=== PATIENT | female | born 1945 | race African-American/Black ===

== ENCOUNTER 2021-07-17 16:45 | Inpatient (IN) ==
[2021-07-18] MEDS ORDERED: Diphenoxylate/Atropine 1 TAB TABLET PO PRN (17:42)
[2021-07-18] MEDS: allopurinoL 100 MG TABLET PO SCH (20:15)
[2021-07-18] MEDS: Famotidine 20 MG TABLET PO SCH (20:15)
[2021-07-18] MEDS: Vancomycin Oral Soln 125 MG/2.5 ML UDC PO SCH (20:51)
[2021-07-19] MEDS ORDERED: amLODIPine 5 MG TABLET PO ONE (02:21)
[2021-07-19 04:43] LABS: Basophils % 0.3 %; Hematocrit 22.5 % (35.3-44.9); Hemoglobin 7.4 g/dL (11.5-15.4); Immature Granulocytes % 2.7 % (0-4); Lymphocytes # 2.9 K/mcL (0.6-4.6); Lymphocytes % 20.2 %; Mean Corpuscular HGB Conc 32.9 g/dL (31.6-35.5); Mean Corpuscular Hemoglobin 26.8 pg (28.0-33.3); Mean Corpuscular Volume 81.5 fL (83.0-100.0); Mean Platelet Volume 10.6 fL (9.4-12.4); Monocytes # 1.3 K/mcL (0.0-1.3); Monocytes % 8.8 %; Neutrophils # 9.8 K/mcL (1.6-8.9); Nucleated Red Blood Cells 0.1 /100 WBC (0); Platelet Count 298 K/mcL (140-400); Red Blood Count 2.76 M/mcL (3.82-4.97); Red Cell Distribution Width 15.6 % (11.5-14.5); White Blood Count 14.4 K/mcL (4.3-11.1)
[2021-07-19 04:58] LABS: BUN/Creatinine Ratio 8 (6-26); Blood Urea Nitrogen 8 mg/dL (8-23); Calcium 8.8 mg/dL (8.6-10.3); Carbon Dioxide 31 mEq/L (23-29); Chloride 101 mEq/L (98-107); Glucose 289 mg/dL (70-105); Osmolality,Calculated 295 (280-300); Potassium 3.4 mEq/L (3.5-5.1); Sodium 138 mEq/L (136-145); eGFR For African Americans > 60 (> 60); eGFR For Non-African Americans 53 (> 60)
[2021-07-19] MEDS: *HR* Enoxaparin 40 MG/0.4 ML SYRINGE SQ SCH (06:03)
[2021-07-19] MEDS: Magnesium Oxide 400 MG TABLET PO SCH (09:35)
[2021-07-19] MEDS: allopurinoL 100 MG TABLET PO SCH ×2 (09:36→21:09)
[2021-07-19] MEDS: *HR* Glimepiride 2 MG TABLET PO SCH (09:36)
[2021-07-19] MEDS: levoFLOXacin 500 MG TABLET PO SCH (09:36)
[2021-07-19] MEDS: Famotidine 20 MG TABLET PO SCH ×2 (09:37→21:09)
[2021-07-19] MEDS: Loratadine 10 MG TABLET PO SCH (09:38)
[2021-07-19] MEDS: Lactobacillus 1 EACH CAP.SPRINK PO SCH (09:38)
[2021-07-19] MEDS: carvediloL 6.25 MG TABLET PO SCH ×2 (09:38→18:20)
[2021-07-19] MEDS: Vancomycin Oral Soln 125 MG/2.5 ML UDC PO SCH ×4 (09:42→21:09)
[2021-07-19] MEDS: Cyanocobalamin (B-12) 1,000 MCG TABLET PO SCH (09:49)
[2021-07-19] MEDS: Cholecalciferol (D-3) 1,000 UNIT (25MCG) TABLET PO SCH (09:49)
[2021-07-19] MEDS ORDERED: *HR* Dextrose 50 % in Water (Syg) 50 ML SYRINGE IVP PRN (12:38)
[2021-07-19] MEDS ORDERED: D5% in Water 1,000 ML IVC PRN (12:38)
[2021-07-19] MEDS ORDERED: Dextrose Gel 15 GM/37.5 ML TUBE PO PRN ×2 (12:38)
[2021-07-19] MEDS: Insulin LISPRO 300 UNITS/3 ML VIAL SUBQ SCH (18:20)
[2021-07-19] MEDS: Insulin DETEMIR 100 UNIT/ML X5UNITS SUBQ SCH (21:09)
[2021-07-20] MEDS: *HR* Enoxaparin 40 MG/0.4 ML SYRINGE SQ SCH (04:22)
[2021-07-20] MEDS: Loratadine 10 MG TABLET PO SCH (08:44)
[2021-07-20] MEDS: allopurinoL 100 MG TABLET PO SCH ×2 (08:44→22:24)
[2021-07-20] MEDS: Lactobacillus 1 EACH CAP.SPRINK PO SCH (08:44)
[2021-07-20] MEDS: *HR* Glimepiride 2 MG TABLET PO SCH (08:45)
[2021-07-20] MEDS: levoFLOXacin 500 MG TABLET PO SCH (08:46)
[2021-07-20] MEDS: carvediloL 6.25 MG TABLET PO SCH ×2 (08:46→16:30)
[2021-07-20] MEDS: Magnesium Oxide 400 MG TABLET PO SCH (08:46)
[2021-07-20] MEDS: Famotidine 20 MG TABLET PO SCH ×2 (08:46→22:24)
[2021-07-20] MEDS: Insulin LISPRO 300 UNITS/3 ML VIAL SUBQ SCH ×3 (08:47→17:12)
[2021-07-20] MEDS: Vancomycin Oral Soln 125 MG/2.5 ML UDC PO SCH ×4 (08:47→22:24)
[2021-07-20] MEDS: Insulin DETEMIR 100 UNIT/ML X5UNITS SUBQ SCH ×2 (08:59→22:25)
[2021-07-21 06:45] LABS: Alanine Aminotransferase 8 Units/L (7-52); Albumin 2.6 g/dL (3.5-5.7); Alkaline Phosphatase 59 Units/L (34-104); Aspartate Amino Transferase 10 Units/L (13-39); BUN/Creatinine Ratio 7 (6-26); Bilirubin,Total 0.7 mg/dL (0.3-1.0); Blood Urea Nitrogen 7 mg/dL (8-23); Calcium 8.6 mg/dL (8.6-10.3); Carbon Dioxide 33 mEq/L (23-29); Chloride 101 mEq/L (98-107); Globulin 2.7 g/dL (2.4-3.5); Glucose 117 mg/dL (70-105); Magnesium 1.4 mg/dL (1.6-2.6); Osmolality,Calculated 287 (280-300); Potassium 3.2 mEq/L (3.5-5.1); Sodium 139 mEq/L (136-145); Total Protein 5.3 g/dL (6.4-8.9); eGFR For African Americans > 60 (> 60); eGFR For Non-African Americans 58 (> 60)
[2021-07-21 06:46] LABS: Hematocrit 21.2 % (35.3-44.9); Mean Corpuscular Hemoglobin 26.8 pg (28.0-33.3); Mean Corpuscular Volume 81.2 fL (83.0-100.0); Mean Platelet Volume 10.8 fL (9.4-12.4); Platelet Count 316 K/mcL (140-400); Red Blood Count 2.61 M/mcL (3.82-4.97); Red Cell Distribution Width 15.8 % (11.5-14.5); White Blood Count 11.4 K/mcL (4.3-11.1)
[2021-07-21] MEDS: *HR* Enoxaparin 40 MG/0.4 ML SYRINGE SQ SCH (07:00)
[2021-07-21] MEDS: Insulin LISPRO 300 UNITS/3 ML VIAL SUBQ SCH ×3 (07:39→16:48)
[2021-07-21] MEDS: Vancomycin Oral Soln 125 MG/2.5 ML UDC PO SCH ×4 (08:21→21:04)
[2021-07-21] MEDS: Lactobacillus 1 EACH CAP.SPRINK PO SCH (08:22)
[2021-07-21] MEDS: Magnesium Oxide 400 MG TABLET PO SCH ×2 (08:22→21:05)
[2021-07-21] MEDS: Loratadine 10 MG TABLET PO SCH (08:22)
[2021-07-21] MEDS: Famotidine 20 MG TABLET PO SCH ×2 (08:22→21:05)
[2021-07-21] MEDS: levoFLOXacin 500 MG TABLET PO SCH (08:22)
[2021-07-21] MEDS: *HR* Glimepiride 2 MG TABLET PO SCH (08:22)
[2021-07-21] MEDS: carvediloL 6.25 MG TABLET PO SCH ×2 (08:22→16:46)
[2021-07-21] MEDS: allopurinoL 100 MG TABLET PO SCH ×2 (08:23→21:05)
[2021-07-21] MEDS: Cholecalciferol (D-3) 1,000 UNIT (25MCG) TABLET PO SCH (08:33)
[2021-07-21] MEDS: Insulin DETEMIR 100 UNIT/ML X5UNITS SUBQ SCH ×2 (08:33→21:06)
[2021-07-21] MEDS: Cyanocobalamin (B-12) 1,000 MCG TABLET PO SCH (08:33)
[2021-07-21] MEDS: Potassium Chloride Elixir 20 MEQ/15 ML UDC PO SCH (13:53)
[2021-07-21] MEDS ORDERED: Acetaminophen 325 MG TABLET PO PRN (16:04)
[2021-07-21] MEDS ORDERED: 0.9 % Sodium Chloride 250 ML ONE (20:53)
[2021-07-21] MEDS: Melatonin 3 MG TABLET PO SCH (21:05)
[2021-07-22 06:02] LABS: Basophils % 0.4 %; Eosinophils % 0.2 %; Hematocrit 25.6 % (35.3-44.9); Hemoglobin 8.5 g/dL (11.5-15.4); Immature Granulocytes % 0.9 % (0-4); Lymphocytes # 2.6 K/mcL (0.6-4.6); Lymphocytes % 28.3 %; Mean Corpuscular HGB Conc 33.2 g/dL (31.6-35.5); Mean Corpuscular Volume 81.3 fL (83.0-100.0); Mean Platelet Volume 10.5 fL (9.4-12.4); Monocytes % 11.1 %; Neutrophils # 5.5 K/mcL (1.6-8.9); Platelet Count 326 K/mcL (140-400); Red Blood Count 3.15 M/mcL (3.82-4.97); Red Cell Distribution Width 15.3 % (11.5-14.5); Segmented Neutrophils % 59.1 %; White Blood Count 9.3 K/mcL (4.3-11.1)
[2021-07-22 06:18] LABS: Alanine Aminotransferase 8 Units/L (7-52); Albumin 2.7 g/dL (3.5-5.7); Alkaline Phosphatase 65 Units/L (34-104); Aspartate Amino Transferase 12 Units/L (13-39); BUN/Creatinine Ratio 9 (6-26); Blood Urea Nitrogen 8 mg/dL (8-23); Calcium 8.6 mg/dL (8.6-10.3); Carbon Dioxide 31 mEq/L (23-29); Chloride 100 mEq/L (98-107); Globulin 2.8 g/dL (2.4-3.5); Glucose 144 mg/dL (70-105); Osmolality,Calculated 283 (280-300); Potassium 3.3 mEq/L (3.5-5.1); Sodium 136 mEq/L (136-145); Total Protein 5.5 g/dL (6.4-8.9); eGFR For African Americans > 60 (> 60); eGFR For Non-African Americans > 60 (> 60)
[2021-07-22] MEDS: *HR* Enoxaparin 40 MG/0.4 ML SYRINGE SQ SCH (06:28)
[2021-07-22] MEDS: Insulin LISPRO 300 UNITS/3 ML VIAL SUBQ SCH ×3 (07:58→16:48)
[2021-07-22] MEDS: Insulin DETEMIR 100 UNIT/ML X5UNITS SUBQ SCH ×2 (08:47→20:26)
[2021-07-22] MEDS: Potassium Chloride Elixir 20 MEQ/15 ML UDC PO SCH ×2 (08:47→20:26)
[2021-07-22] MEDS: Lactobacillus 1 EACH CAP.SPRINK PO SCH (08:48)
[2021-07-22] MEDS: allopurinoL 100 MG TABLET PO SCH ×2 (08:48→20:26)
[2021-07-22] MEDS: *HR* Glimepiride 2 MG TABLET PO SCH (08:48)
[2021-07-22] MEDS: levoFLOXacin 500 MG TABLET PO SCH (08:48)
[2021-07-22] MEDS: Loratadine 10 MG TABLET PO SCH (08:48)
[2021-07-22] MEDS: Vancomycin Oral Soln 125 MG/2.5 ML UDC PO SCH ×4 (08:48→20:26)
[2021-07-22] MEDS: Magnesium Oxide 400 MG TABLET PO SCH ×2 (08:49→20:25)
[2021-07-22] MEDS: Famotidine 20 MG TABLET PO SCH ×2 (08:49→20:26)
[2021-07-22] MEDS: carvediloL 6.25 MG TABLET PO SCH ×2 (08:49→16:48)
[2021-07-22] MEDS: EXENATIDE MICROSPHERES SQ SCH ×2 (08:49→10:19)
[2021-07-22 13:22] LABS: Iron 68 mcg/dL (50-170)
[2021-07-22 15:59] LABS: Ferritin > 1500 ng/mL (10-120)
[2021-07-22] MEDS: Melatonin 3 MG TABLET PO SCH (20:25)
[2021-07-23] MEDS: *HR* Enoxaparin 40 MG/0.4 ML SYRINGE SQ SCH (05:44)
[2021-07-23 06:21] LABS: Basophils % 0.4 %; Eosinophils # 0.1 K/mcL (0.0-0.6); Eosinophils % 0.5 %; Hematocrit 26.2 % (35.3-44.9); Hemoglobin 8.8 g/dL (11.5-15.4); Immature Granulocytes % 0.6 % (0-4); Lymphocytes # 2.5 K/mcL (0.6-4.6); Lymphocytes % 24.2 %; Mean Corpuscular HGB Conc 33.6 g/dL (31.6-35.5); Mean Corpuscular Hemoglobin 27.4 pg (28.0-33.3); Mean Corpuscular Volume 81.6 fL (83.0-100.0); Mean Platelet Volume 10.5 fL (9.4-12.4); Monocytes % 9.7 %; Neutrophils # 6.7 K/mcL (1.6-8.9); Platelet Count 341 K/mcL (140-400); Red Blood Count 3.21 M/mcL (3.82-4.97); Red Cell Distribution Width 15.7 % (11.5-14.5); Segmented Neutrophils % 64.6 %; White Blood Count 10.4 K/mcL (4.3-11.1)
[2021-07-23 06:51] LABS: BUN/Creatinine Ratio 8 (6-26); Blood Urea Nitrogen 7 mg/dL (8-23); Calcium 8.5 mg/dL (8.6-10.3); Carbon Dioxide 32 mEq/L (23-29); Chloride 100 mEq/L (98-107); Potassium 3.4 mEq/L (3.5-5.1); Sodium 140 mEq/L (136-145); eGFR For African Americans > 60 (> 60); eGFR For Non-African Americans 60 (> 60)
[2021-07-23 07:00] LABS: Glucose 121 mg/dL (70-105); Osmolality,Calculated 289 (280-300)
[2021-07-23] MEDS: Insulin LISPRO 300 UNITS/3 ML VIAL SUBQ SCH ×3 (07:44→15:56)
[2021-07-23] MEDS: Famotidine 20 MG TABLET PO SCH ×2 (08:58→22:02)
[2021-07-23] MEDS: carvediloL 6.25 MG TABLET PO SCH ×2 (08:58→16:39)
[2021-07-23] MEDS: Vancomycin Oral Soln 125 MG/2.5 ML UDC PO SCH ×4 (08:58→22:02)
[2021-07-23] MEDS: Potassium Chloride Elixir 20 MEQ/15 ML UDC PO SCH ×2 (08:58→22:01)
[2021-07-23] MEDS: Loratadine 10 MG TABLET PO SCH (08:58)
[2021-07-23] MEDS: Lactobacillus 1 EACH CAP.SPRINK PO SCH (08:58)
[2021-07-23] MEDS: allopurinoL 100 MG TABLET PO SCH ×2 (08:58→22:02)
[2021-07-23] MEDS: Insulin DETEMIR 100 UNIT/ML X5UNITS SUBQ SCH ×2 (08:59→22:02)
[2021-07-23] MEDS: *HR* Glimepiride 2 MG TABLET PO SCH (08:59)
[2021-07-23] MEDS: Magnesium Oxide 400 MG TABLET PO SCH ×2 (08:59→22:02)
[2021-07-23] MEDS: Cyanocobalamin (B-12) 1,000 MCG TABLET PO SCH (09:09)
[2021-07-23] MEDS: Melatonin 3 MG TABLET PO SCH (22:02)
[2021-07-23] MEDS ORDERED: Oxymetazoline Nasal SPRAY BOTTLE 15ML NS ONE (23:59)
[2021-07-24] MEDS ORDERED: Silver Nitrate Applicator 1 STICK..EA. TP ONE ×2 (00:03→00:11)
[2021-07-24 02:05] LABS: Basophils # 0.1 K/mcL (0.0-0.2); Basophils % 0.5 %; Eosinophils # 0.1 K/mcL (0.0-0.6); Eosinophils % 0.5 %; Hematocrit 25.4 % (35.3-44.9); Hemoglobin 8.3 g/dL (11.5-15.4); Immature Granulocytes % 0.6 % (0-4); Lymphocytes # 2.8 K/mcL (0.6-4.6); Lymphocytes % 25.9 %; Mean Corpuscular HGB Conc 32.7 g/dL (31.6-35.5); Mean Corpuscular Hemoglobin 26.9 pg (28.0-33.3); Mean Corpuscular Volume 82.2 fL (83.0-100.0); Monocytes # 1.2 K/mcL (0.0-1.3); Monocytes % 11.1 %; Neutrophils # 6.6 K/mcL (1.6-8.9); Platelet Count 310 K/mcL (140-400); Red Blood Count 3.09 M/mcL (3.82-4.97); Red Cell Distribution Width 15.9 % (11.5-14.5); Segmented Neutrophils % 61.4 %; White Blood Count 10.8 K/mcL (4.3-11.1)
[2021-07-24] MEDS: Pantoprazole 40 MG VIAL IVP SCH ×2 (05:11→19:16)
[2021-07-24 08:16] LABS: Basophils # 0.1 K/mcL (0.0-0.2); Basophils % 0.5 %; Eosinophils # 0.1 K/mcL (0.0-0.6); Eosinophils % 0.6 %; Hematocrit 26.9 % (35.3-44.9); Immature Granulocytes % 0.5 % (0-4); Lymphocytes % 29.9 %; Mean Corpuscular HGB Conc 33.5 g/dL (31.6-35.5); Mean Corpuscular Hemoglobin 27.1 pg (28.0-33.3); Mean Platelet Volume 10.5 fL (9.4-12.4); Monocytes # 1.1 K/mcL (0.0-1.3); Neutrophils # 5.9 K/mcL (1.6-8.9); Platelet Count 365 K/mcL (140-400); Red Blood Count 3.32 M/mcL (3.82-4.97); Red Cell Distribution Width 15.7 % (11.5-14.5); Segmented Neutrophils % 57.5 %; White Blood Count 10.2 K/mcL (4.3-11.1)
[2021-07-24 08:29] LABS: BUN/Creatinine Ratio 8 (6-26); Blood Urea Nitrogen 8 mg/dL (8-23); Calcium 8.9 mg/dL (8.6-10.3); Carbon Dioxide 31 mEq/L (23-29); Chloride 99 mEq/L (98-107); Glucose 164 mg/dL (70-105); Osmolality,Calculated 288 (280-300); Potassium 4.1 mEq/L (3.5-5.1); Sodium 138 mEq/L (136-145); eGFR For African Americans > 60 (> 60); eGFR For Non-African Americans 55 (> 60)
[2021-07-24] MEDS: carvediloL 6.25 MG TABLET PO SCH ×2 (08:55→18:36)
[2021-07-24] MEDS: Loratadine 10 MG TABLET PO SCH (09:11)
[2021-07-24] MEDS: Magnesium Oxide 400 MG TABLET PO SCH ×2 (09:11→21:49)
[2021-07-24] MEDS: Lactobacillus 1 EACH CAP.SPRINK PO SCH (09:11)
[2021-07-24] MEDS: allopurinoL 100 MG TABLET PO SCH ×2 (09:11→21:49)
[2021-07-24] MEDS: Potassium Chloride Elixir 20 MEQ/15 ML UDC PO SCH (09:12)
[2021-07-24] MEDS: Insulin LISPRO 300 UNITS/3 ML VIAL SUBQ SCH ×3 (09:12→18:37)
[2021-07-24] MEDS: Cholecalciferol (D-3) 1,000 UNIT (25MCG) TABLET PO SCH (09:31)
[2021-07-24] MEDS: Cyanocobalamin (B-12) 1,000 MCG TABLET PO SCH (09:32)
[2021-07-24] MEDS: *HR* Glimepiride 2 MG TABLET PO SCH (09:32)
[2021-07-24] MEDS: Insulin DETEMIR 100 UNIT/ML X5UNITS SUBQ SCH ×2 (10:01→21:49)
[2021-07-24] MEDS: Melatonin 3 MG TABLET PO SCH (21:49)
[2021-07-25] MEDS: Pantoprazole 40 MG VIAL IVP SCH (06:03)
[2021-07-25 07:28] VITALS: BP 167/92; PULSE 93; RESP 17; TEMP 97.5; O2SAT 95
[2021-07-25] MEDS: *HR* Glimepiride 2 MG TABLET PO SCH (09:44)
[2021-07-25] MEDS: carvediloL 6.25 MG TABLET PO SCH (09:44)
[2021-07-25] MEDS: Lactobacillus 1 EACH CAP.SPRINK PO SCH (09:44)
[2021-07-25] MEDS: Magnesium Oxide 400 MG TABLET PO SCH (09:45)
[2021-07-25] MEDS: allopurinoL 100 MG TABLET PO SCH (09:45)
[2021-07-25] MEDS: Loratadine 10 MG TABLET PO SCH (09:45)
[2021-07-25] MEDS: Insulin LISPRO 300 UNITS/3 ML VIAL SUBQ SCH ×2 (09:46→12:29)
[2021-07-25] MEDS: Insulin DETEMIR 100 UNIT/ML X5UNITS SUBQ SCH (09:46)
[2021-07-26 17:39] LABS: % Iron Saturation 38 % (15-50); Transferrin 129 mg/dL (200-400)
== END 2021-07-25 12:35 | disposition home health service (06) | DRG 194 ==
LOC: INPGRE 07-18 17:07
PROVIDERS: ADMIT Family Medicine; ATTEND Family Medicine

== ENCOUNTER 2021-10-03 16:42 | Inpatient (IN) ==
[2021-10-06] MEDS ORDERED: polyethylene glycoL 3350 17 GM POWD.PACK PO PRN (23:25)
[2021-10-06] MEDS ORDERED: D5% in Water 1,000 ML IVC PRN (23:29)
[2021-10-06] MEDS ORDERED: *HR* Dextrose 50 % in Water (Syg) 50 ML SYRINGE IVP PRN (23:29)
[2021-10-06] MEDS ORDERED: Dextrose Gel 15 GM/37.5 ML TUBE PO PRN ×2 (23:29)
[2021-10-06] MEDS ORDERED: Insulin DETEMIR 100 UNIT/ML per UNIT SUBQ ONE (23:45)
[2021-10-07 06:04] LABS: Basophils % 0.1 %; Eosinophils % 0.1 %; Hematocrit 25.4 % (35.3-44.9); Hemoglobin 8.9 g/dL (11.5-15.4); Immature Granulocytes % 2.3 % (0-4); Lymphocytes # 0.9 K/mcL (0.6-4.6); Lymphocytes % 6.2 %; Mean Corpuscular Hemoglobin 27.6 pg (28.0-33.3); Mean Corpuscular Volume 78.9 fL (83.0-100.0); Mean Platelet Volume 10.5 fL (9.4-12.4); Monocytes # 0.7 K/mcL (0.0-1.3); Monocytes % 4.8 %; Neutrophils # 12.2 K/mcL (1.6-8.9); Nucleated Red Blood Cells 0.4 /100 WBC (0); Platelet Count 217 K/mcL (140-400); Red Blood Count 3.22 M/mcL (3.82-4.97); Red Cell Distribution Width 16.6 % (11.5-14.5); Segmented Neutrophils % 86.5 %; White Blood Count 14.1 K/mcL (4.3-11.1)
[2021-10-07 06:20] LABS: BUN/Creatinine Ratio 22 (6-26); Blood Urea Nitrogen 19 mg/dL (8-23); Calcium 8.4 mg/dL (8.6-10.3); Carbon Dioxide 30 mEq/L (23-29); Chloride 99 mEq/L (98-107); Glucose 108 mg/dL (70-105); Osmolality,Calculated 283 (280-300); Potassium 3.5 mEq/L (3.5-5.1); Sodium 135 mEq/L (136-145); eGFR For African Americans > 60 (> 60); eGFR For Non-African Americans > 60 (> 60)
[2021-10-07] MEDS: allopurinoL 100 MG TABLET PO SCH ×2 (10:33→21:02)
[2021-10-07] MEDS: Cholecalciferol (D-3) 1,000 UNIT (25MCG) TABLET PO SCH (10:33)
[2021-10-07] MEDS: Loratadine 10 MG TABLET PO SCH (10:33)
[2021-10-07] MEDS: amLODIPine 5 MG TABLET PO SCH (10:33)
[2021-10-07] MEDS: lisinopriL 10 MG TABLET PO SCH (10:33)
[2021-10-07] MEDS: dexAMETHasone 4 MG TABLET PO SCH ×2 (10:34→21:02)
[2021-10-07] MEDS: Insulin DETEMIR 100 UNIT/ML X5UNITS SUBQ SCH ×2 (10:34→21:02)
[2021-10-07] MEDS: carvediloL 6.25 MG TABLET PO SCH ×2 (10:34→18:04)
[2021-10-07] MEDS: DICLOFENAC SODIUM 2 GM TP SCH ×4 (10:35→21:06)
[2021-10-07] MEDS: Vancomycin Oral Soln 125 MG/2.5 ML UDC PO SCH (10:50)
[2021-10-07] MEDS: Insulin LISPRO 300 UNITS/3 ML VIAL SUBQ SCH ×5 (11:43→21:03)
[2021-10-07 13:47] LABS: Estimated Average Glucose 163 mg/dl; Hemoglobin A1C 7.3 %
[2021-10-07] MEDS ORDERED: Dextrose Gel 15 GM/37.5 ML TUBE PO PRN ×2 (17:01)
[2021-10-07] MEDS ORDERED: *HR* Dextrose 50 % in Water (Syg) 50 ML SYRINGE IVP PRN (17:01)
[2021-10-07] MEDS ORDERED: D5% in Water 1,000 ML IVC PRN (17:01)
[2021-10-07] MEDS: OLANZapine 5 MG TAB.RAPDIS PO SCH (21:02)
[2021-10-08] MEDS: Loratadine 10 MG TABLET PO SCH (08:45)
[2021-10-08] MEDS: amLODIPine 5 MG TABLET PO SCH (08:45)
[2021-10-08] MEDS: dexAMETHasone 4 MG TABLET PO SCH ×2 (08:45→20:10)
[2021-10-08] MEDS: lisinopriL 10 MG TABLET PO SCH (08:45)
[2021-10-08] MEDS: carvediloL 6.25 MG TABLET PO SCH ×2 (08:45→17:22)
[2021-10-08] MEDS: DICLOFENAC SODIUM 2 GM TP SCH ×4 (08:45→20:10)
[2021-10-08] MEDS: allopurinoL 100 MG TABLET PO SCH ×2 (08:45→20:10)
[2021-10-08] MEDS: Cholecalciferol (D-3) 1,000 UNIT (25MCG) TABLET PO SCH (08:45)
[2021-10-08] MEDS: Insulin LISPRO 300 UNITS/3 ML VIAL SUBQ SCH ×4 (08:46→19:41)
[2021-10-08] MEDS: Insulin DETEMIR 100 UNIT/ML X5UNITS SUBQ SCH ×2 (08:52→20:10)
[2021-10-08] MEDS: OLANZapine 5 MG TAB.RAPDIS PO SCH (20:10)
[2021-10-08] MEDS: BYDUREON 2 MG SQ SCH (20:15)
[2021-10-08] MEDS ORDERED: NON-FORMULARY MEDICATION 1 EACH EACH SQ SCH (21:00)
[2021-10-09 05:16] LABS: Hematocrit 22.8 % (35.3-44.9); Hemoglobin 7.8 g/dL (11.5-15.4); Mean Corpuscular HGB Conc 34.2 g/dL (31.6-35.5); Mean Corpuscular Hemoglobin 27.2 pg (28.0-33.3); Mean Corpuscular Volume 79.4 fL (83.0-100.0); Mean Platelet Volume 11.6 fL (9.4-12.4); Platelet Count 202 K/mcL (140-400); Red Blood Count 2.87 M/mcL (3.82-4.97); Red Cell Distribution Width 16.7 % (11.5-14.5); White Blood Count 14.4 K/mcL (4.3-11.1)
[2021-10-09 05:29] LABS: Alanine Aminotransferase 17 Units/L (7-52); Albumin 2.8 g/dL (3.5-5.7); Albumin/Globulin Ratio 1.6 (1.1-2.2); Alkaline Phosphatase 74 Units/L (34-104); Aspartate Amino Transferase 12 Units/L (13-39); BUN/Creatinine Ratio 23 (6-26); Bilirubin,Total 0.9 mg/dL (0.3-1.0); Blood Urea Nitrogen 25 mg/dL (8-23); Calcium 8.1 mg/dL (8.6-10.3); Carbon Dioxide 30 mEq/L (23-29); Chloride 101 mEq/L (98-107); Globulin 1.7 g/dL (2.4-3.5); Glucose 205 mg/dL (70-105); Osmolality,Calculated 294 (280-300); Potassium 3.8 mEq/L (3.5-5.1); Sodium 137 mEq/L (136-145); Total Protein 4.5 g/dL (6.4-8.9); eGFR For African Americans > 60 (> 60); eGFR For Non-African Americans 50 (> 60)
[2021-10-09] MEDS: carvediloL 6.25 MG TABLET PO SCH ×2 (07:53→17:09)
[2021-10-09] MEDS: amLODIPine 5 MG TABLET PO SCH (07:53)
[2021-10-09] MEDS: dexAMETHasone 4 MG TABLET PO SCH ×2 (07:54→20:40)
[2021-10-09] MEDS: Insulin LISPRO 300 UNITS/3 ML VIAL SUBQ SCH ×4 (07:54→20:42)
[2021-10-09] MEDS: Cholecalciferol (D-3) 1,000 UNIT (25MCG) TABLET PO SCH (07:54)
[2021-10-09] MEDS: Loratadine 10 MG TABLET PO SCH (07:54)
[2021-10-09] MEDS: lisinopriL 10 MG TABLET PO SCH (07:54)
[2021-10-09] MEDS: Insulin DETEMIR 100 UNIT/ML X5UNITS SUBQ SCH ×2 (07:54→20:41)
[2021-10-09] MEDS: allopurinoL 100 MG TABLET PO SCH ×2 (07:54→20:40)
[2021-10-09] MEDS: DICLOFENAC SODIUM 2 GM TP SCH ×4 (07:56→20:39)
[2021-10-09] MEDS: Vancomycin Oral Soln 125 MG/2.5 ML UDC PO SCH (08:05)
[2021-10-09] MEDS: OLANZapine 5 MG TAB.RAPDIS PO SCH (20:41)
[2021-10-10] MEDS: lisinopriL 10 MG TABLET PO SCH (08:13)
[2021-10-10] MEDS: dexAMETHasone 4 MG TABLET PO SCH ×2 (08:13→20:35)
[2021-10-10] MEDS: allopurinoL 100 MG TABLET PO SCH ×2 (08:13→20:36)
[2021-10-10] MEDS: amLODIPine 5 MG TABLET PO SCH (08:13)
[2021-10-10] MEDS: Loratadine 10 MG TABLET PO SCH (08:13)
[2021-10-10] MEDS: carvediloL 6.25 MG TABLET PO SCH ×2 (08:13→17:22)
[2021-10-10] MEDS: Cholecalciferol (D-3) 1,000 UNIT (25MCG) TABLET PO SCH (08:13)
[2021-10-10] MEDS: DICLOFENAC SODIUM 2 GM TP SCH ×4 (08:14→20:37)
[2021-10-10] MEDS: Insulin DETEMIR 100 UNIT/ML X5UNITS SUBQ SCH ×2 (08:21→20:36)
[2021-10-10] MEDS: Insulin LISPRO 300 UNITS/3 ML VIAL SUBQ SCH ×4 (08:21→20:36)
[2021-10-10] MEDS: OLANZapine 5 MG TAB.RAPDIS PO SCH (20:35)
[2021-10-10] MEDS: Melatonin 3 MG TABLET PO PRN (20:36)
[2021-10-11] MEDS: allopurinoL 100 MG TABLET PO SCH ×2 (07:28→20:40)
[2021-10-11] MEDS: dexAMETHasone 4 MG TABLET PO SCH (07:28)
[2021-10-11] MEDS: amLODIPine 5 MG TABLET PO SCH (07:28)
[2021-10-11] MEDS: Loratadine 10 MG TABLET PO SCH (07:28)
[2021-10-11] MEDS: Cholecalciferol (D-3) 1,000 UNIT (25MCG) TABLET PO SCH (07:28)
[2021-10-11] MEDS: carvediloL 6.25 MG TABLET PO SCH ×2 (07:28→17:46)
[2021-10-11] MEDS: DICLOFENAC SODIUM 2 GM TP SCH ×4 (07:29→20:43)
[2021-10-11] MEDS: Insulin LISPRO 300 UNITS/3 ML VIAL SUBQ SCH ×4 (07:29→20:43)
[2021-10-11] MEDS: lisinopriL 10 MG TABLET PO SCH (07:29)
[2021-10-11] MEDS: Insulin DETEMIR 100 UNIT/ML X5UNITS SUBQ SCH ×2 (07:34→20:43)
[2021-10-11] MEDS: Vancomycin Oral Soln 125 MG/2.5 ML UDC PO SCH (07:35)
[2021-10-11] MEDS: Melatonin 3 MG TABLET PO PRN (20:40)
[2021-10-11] MEDS: OLANZapine 5 MG TAB.RAPDIS PO SCH (20:41)
[2021-10-12 05:47] LABS: Hemoglobin 9.5 g/dL (11.5-15.4); Mean Corpuscular HGB Conc 32.8 g/dL (31.6-35.5); Mean Corpuscular Hemoglobin 27.9 pg (28.0-33.3); Mean Platelet Volume 10.3 fL (9.4-12.4); Platelet Count 179 K/mcL (140-400); Red Blood Count 3.41 M/mcL (3.82-4.97); Red Cell Distribution Width 19.3 % (11.5-14.5); White Blood Count 17.5 K/mcL (4.3-11.1)
[2021-10-12 06:09] LABS: BUN/Creatinine Ratio 30 (6-26); Blood Urea Nitrogen 30 mg/dL (8-23); Calcium 8.7 mg/dL (8.6-10.3); Carbon Dioxide 26 mEq/L (23-29); Chloride 104 mEq/L (98-107); Glucose 126 mg/dL (70-105); Osmolality,Calculated 296 (280-300); Potassium 3.8 mEq/L (3.5-5.1); Sodium 139 mEq/L (136-145); eGFR For African Americans > 60 (> 60); eGFR For Non-African Americans 54 (> 60)
[2021-10-12] MEDS: Insulin DETEMIR 100 UNIT/ML X5UNITS SUBQ SCH ×2 (08:32→19:35)
[2021-10-12] MEDS: Insulin LISPRO 300 UNITS/3 ML VIAL SUBQ SCH ×4 (08:33→19:34)
[2021-10-12] MEDS: lisinopriL 10 MG TABLET PO SCH (08:34)
[2021-10-12] MEDS: Loratadine 10 MG TABLET PO SCH (08:34)
[2021-10-12] MEDS: amLODIPine 5 MG TABLET PO SCH (08:34)
[2021-10-12] MEDS: carvediloL 6.25 MG TABLET PO SCH ×2 (08:34→16:59)
[2021-10-12] MEDS: dexAMETHasone 4 MG TABLET PO SCH (08:34)
[2021-10-12] MEDS: DICLOFENAC SODIUM 2 GM TP SCH ×4 (08:34→19:42)
[2021-10-12] MEDS: Cholecalciferol (D-3) 1,000 UNIT (25MCG) TABLET PO SCH (08:34)
[2021-10-12] MEDS: allopurinoL 100 MG TABLET PO SCH ×2 (08:34→19:34)
[2021-10-12] MEDS: OLANZapine 5 MG TAB.RAPDIS PO SCH (19:33)
[2021-10-13] MEDS: Insulin LISPRO 300 UNITS/3 ML VIAL SUBQ SCH ×4 (09:49→20:47)
[2021-10-13] MEDS: Insulin DETEMIR 100 UNIT/ML X5UNITS SUBQ SCH (09:50)
[2021-10-13] MEDS: Loratadine 10 MG TABLET PO SCH (10:06)
[2021-10-13] MEDS: dexAMETHasone 4 MG TABLET PO SCH (10:06)
[2021-10-13] MEDS: Cholecalciferol (D-3) 1,000 UNIT (25MCG) TABLET PO SCH (10:06)
[2021-10-13] MEDS: lisinopriL 10 MG TABLET PO SCH (10:06)
[2021-10-13] MEDS: allopurinoL 100 MG TABLET PO SCH ×2 (10:06→20:45)
[2021-10-13] MEDS: Vancomycin Oral Soln 125 MG/2.5 ML UDC PO SCH (10:06)
[2021-10-13] MEDS: amLODIPine 5 MG TABLET PO SCH (10:06)
[2021-10-13] MEDS: carvediloL 6.25 MG TABLET PO SCH ×2 (10:06→17:20)
[2021-10-13] MEDS: DICLOFENAC SODIUM 2 GM TP SCH ×3 (11:20→20:48)
[2021-10-13] MEDS: OLANZapine 5 MG TAB.RAPDIS PO SCH (20:45)
[2021-10-14 06:05] LABS: Hemoglobin 8.7 g/dL (11.5-15.4); Mean Corpuscular HGB Conc 33.5 g/dL (31.6-35.5); Mean Corpuscular Hemoglobin 27.9 pg (28.0-33.3); Mean Corpuscular Volume 83.3 fL (83.0-100.0); Mean Platelet Volume 12.4 fL (9.4-12.4); Platelet Count 161 K/mcL (140-400); Red Blood Count 3.12 M/mcL (3.82-4.97); Red Cell Distribution Width 18.5 % (11.5-14.5); White Blood Count 18.4 K/mcL (4.3-11.1)
[2021-10-14 06:34] LABS: Alanine Aminotransferase 64 Units/L (7-52); Albumin 3.1 g/dL (3.5-5.7); Albumin/Globulin Ratio 1.9 (1.1-2.2); Alkaline Phosphatase 105 Units/L (34-104); Aspartate Amino Transferase 32 Units/L (13-39); BUN/Creatinine Ratio 26 (6-26); Bilirubin,Total 1.2 mg/dL (0.3-1.0); Blood Urea Nitrogen 28 mg/dL (8-23); Calcium 8.3 mg/dL (8.6-10.3); Carbon Dioxide 25 mEq/L (23-29); Chloride 105 mEq/L (98-107); Globulin 1.6 g/dL (2.4-3.5); Glucose 199 mg/dL (70-105); Osmolality,Calculated 299 (280-300); Potassium 3.7 mEq/L (3.5-5.1); Sodium 139 mEq/L (136-145); Total Protein 4.7 g/dL (6.4-8.9); eGFR For African Americans > 60 (> 60); eGFR For Non-African Americans 50 (> 60)
[2021-10-14] MEDS: dexAMETHasone 4 MG TABLET PO SCH (09:13)
[2021-10-14] MEDS: amLODIPine 5 MG TABLET PO SCH (09:13)
[2021-10-14] MEDS: allopurinoL 100 MG TABLET PO SCH ×2 (09:13→21:08)
[2021-10-14] MEDS: Cholecalciferol (D-3) 1,000 UNIT (25MCG) TABLET PO SCH (09:13)
[2021-10-14] MEDS: carvediloL 6.25 MG TABLET PO SCH ×2 (09:13→16:52)
[2021-10-14] MEDS: lisinopriL 10 MG TABLET PO SCH (09:13)
[2021-10-14] MEDS: Loratadine 10 MG TABLET PO SCH (09:13)
[2021-10-14] MEDS: Insulin LISPRO 300 UNITS/3 ML VIAL SUBQ SCH ×4 (09:17→21:16)
[2021-10-14] MEDS: DICLOFENAC SODIUM 2 GM TP SCH ×4 (09:17→21:09)
[2021-10-14 19:02] LABS: Basophils % 0.1 %; Hematocrit 25.7 % (35.3-44.9); Hemoglobin 8.7 g/dL (11.5-15.4); Immature Granulocytes % 0.8 % (0-4); Lymphocytes # 0.6 K/mcL (0.6-4.6); Mean Corpuscular HGB Conc 33.9 g/dL (31.6-35.5); Mean Corpuscular Hemoglobin 28.2 pg (28.0-33.3); Mean Corpuscular Volume 83.4 fL (83.0-100.0); Mean Platelet Volume 11.4 fL (9.4-12.4); Monocytes # 0.3 K/mcL (0.0-1.3); Monocytes % 1.5 %; Platelet Count 144 K/mcL (140-400); Red Blood Count 3.08 M/mcL (3.82-4.97); Red Cell Distribution Width 18.1 % (11.5-14.5); Segmented Neutrophils % 94.6 %; White Blood Count 19.5 K/mcL (4.3-11.1)
[2021-10-14 19:06] LABS: Neutrophils # 18.5 K/mcL (1.6-8.9)
[2021-10-14 19:16] LABS: Calcium 8.4 mg/dL (8.6-10.3); Magnesium 1.9 mg/dL (1.6-2.6); Potassium 3.4 mEq/L (3.5-5.1)
[2021-10-14] MEDS: OLANZapine 5 MG TAB.RAPDIS PO SCH (21:08)
[2021-10-15] MEDS: Loratadine 10 MG TABLET PO SCH (08:25)
[2021-10-15] MEDS: carvediloL 6.25 MG TABLET PO SCH ×2 (08:25→16:42)
[2021-10-15] MEDS: Cholecalciferol (D-3) 1,000 UNIT (25MCG) TABLET PO SCH (08:25)
[2021-10-15] MEDS: lisinopriL 10 MG TABLET PO SCH (08:25)
[2021-10-15] MEDS: allopurinoL 100 MG TABLET PO SCH ×2 (08:26→19:39)
[2021-10-15] MEDS: amLODIPine 5 MG TABLET PO SCH (08:26)
[2021-10-15] MEDS: dexAMETHasone 4 MG TABLET PO SCH (08:26)
[2021-10-15] MEDS: DICLOFENAC SODIUM 2 GM TP SCH ×4 (08:26→21:04)
[2021-10-15] MEDS: Insulin LISPRO 300 UNITS/3 ML VIAL SUBQ SCH ×4 (08:29→19:40)
[2021-10-15] MEDS: Vancomycin Oral Soln 125 MG/2.5 ML UDC PO SCH (08:44)
[2021-10-15] MEDS: OLANZapine 5 MG TAB.RAPDIS PO SCH (19:40)
[2021-10-16] MEDS: BYDUREON 2 MG SQ SCH ×2 (06:41→12:02)
[2021-10-16] MEDS: lisinopriL 10 MG TABLET PO SCH (08:07)
[2021-10-16] MEDS: allopurinoL 100 MG TABLET PO SCH ×2 (08:07→20:55)
[2021-10-16] MEDS: Loratadine 10 MG TABLET PO SCH (08:07)
[2021-10-16] MEDS: Cholecalciferol (D-3) 1,000 UNIT (25MCG) TABLET PO SCH (08:07)
[2021-10-16] MEDS: carvediloL 6.25 MG TABLET PO SCH ×2 (08:07→16:26)
[2021-10-16] MEDS: Insulin LISPRO 300 UNITS/3 ML VIAL SUBQ SCH ×4 (08:08→20:56)
[2021-10-16] MEDS: dexAMETHasone 4 MG TABLET PO SCH (08:08)
[2021-10-16] MEDS: amLODIPine 5 MG TABLET PO SCH (08:08)
[2021-10-16] MEDS: DICLOFENAC SODIUM 2 GM TP SCH ×4 (08:27→20:56)
[2021-10-16] MEDS: levETIRAcetam 250 MG TABLET PO SCH (17:49)
[2021-10-16] MEDS: OLANZapine 5 MG TAB.RAPDIS PO SCH (20:55)
[2021-10-16] MEDS: Melatonin 3 MG TABLET PO PRN (20:55)
[2021-10-17] MEDS: levETIRAcetam 250 MG TABLET PO SCH ×2 (05:57→16:56)
[2021-10-17 08:39] LABS: Basophils % 0.1 %; Eosinophils % 0.1 %; Hematocrit 25.6 % (35.3-44.9); Hemoglobin 8.8 g/dL (11.5-15.4); Immature Granulocytes % 0.7 % (0-4); Lymphocytes # 1.4 K/mcL (0.6-4.6); Lymphocytes % 7.9 %; Mean Corpuscular HGB Conc 34.4 g/dL (31.6-35.5); Mean Corpuscular Hemoglobin 28.4 pg (28.0-33.3); Mean Corpuscular Volume 82.6 fL (83.0-100.0); Mean Platelet Volume 11.4 fL (9.4-12.4); Monocytes # 0.4 K/mcL (0.0-1.3); Monocytes % 2.4 %; Neutrophils # 16.2 K/mcL (1.6-8.9); Platelet Count 135 K/mcL (140-400); Red Cell Distribution Width 18.6 % (11.5-14.5); Segmented Neutrophils % 88.8 %; White Blood Count 18.2 K/mcL (4.3-11.1)
[2021-10-17] MEDS: DICLOFENAC SODIUM 2 GM TP SCH ×4 (08:47→21:32)
[2021-10-17] MEDS: carvediloL 6.25 MG TABLET PO SCH ×2 (08:56→16:56)
[2021-10-17] MEDS: Cholecalciferol (D-3) 1,000 UNIT (25MCG) TABLET PO SCH (08:56)
[2021-10-17] MEDS: allopurinoL 100 MG TABLET PO SCH ×2 (08:56→21:32)
[2021-10-17] MEDS: dexAMETHasone 4 MG TABLET PO SCH (08:56)
[2021-10-17] MEDS: amLODIPine 5 MG TABLET PO SCH (08:56)
[2021-10-17] MEDS: Loratadine 10 MG TABLET PO SCH (08:57)
[2021-10-17] MEDS: Insulin LISPRO 300 UNITS/3 ML VIAL SUBQ SCH ×4 (08:57→21:02)
[2021-10-17] MEDS: Vancomycin Oral Soln 125 MG/2.5 ML UDC PO SCH (08:57)
[2021-10-17] MEDS: lisinopriL 10 MG TABLET PO SCH (08:57)
[2021-10-17] MEDS: BYDUREON 2 MG SQ SCH (09:00)
[2021-10-17 09:13] LABS: BUN/Creatinine Ratio 27 (6-26); Blood Urea Nitrogen 28 mg/dL (8-23); Calcium 8.6 mg/dL (8.6-10.3); Carbon Dioxide 28 mEq/L (23-29); Chloride 104 mEq/L (98-107); Glucose 223 mg/dL (70-105); Osmolality,Calculated 300 (280-300); Potassium 3.9 mEq/L (3.5-5.1); Sodium 139 mEq/L (136-145); eGFR For African Americans > 60 (> 60); eGFR For Non-African Americans 52 (> 60)
[2021-10-17] MEDS: OLANZapine 5 MG TAB.RAPDIS PO SCH (21:31)
[2021-10-17] MEDS: Melatonin 3 MG TABLET PO PRN (21:32)
[2021-10-18] MEDS: levETIRAcetam 250 MG TABLET PO SCH ×2 (05:52→17:09)
[2021-10-18] MEDS: Insulin LISPRO 300 UNITS/3 ML VIAL SUBQ SCH ×4 (09:31→20:18)
[2021-10-18] MEDS: allopurinoL 100 MG TABLET PO SCH ×2 (09:32→20:27)
[2021-10-18] MEDS: Loratadine 10 MG TABLET PO SCH (09:32)
[2021-10-18] MEDS: DICLOFENAC SODIUM 2 GM TP SCH ×4 (09:32→20:19)
[2021-10-18] MEDS: carvediloL 6.25 MG TABLET PO SCH ×2 (09:32→17:09)
[2021-10-18] MEDS: amLODIPine 5 MG TABLET PO SCH (09:32)
[2021-10-18] MEDS: lisinopriL 10 MG TABLET PO SCH (09:32)
[2021-10-18] MEDS: Cholecalciferol (D-3) 1,000 UNIT (25MCG) TABLET PO SCH (09:32)
[2021-10-18] MEDS: dexAMETHasone 4 MG TABLET PO SCH (09:32)
[2021-10-18] MEDS: OLANZapine 5 MG TAB.RAPDIS PO SCH (20:27)
[2021-10-18] MEDS: Melatonin 3 MG TABLET PO PRN (20:27)
[2021-10-19] MEDS: levETIRAcetam 250 MG TABLET PO SCH ×2 (06:37→17:07)
[2021-10-19] MEDS: Cholecalciferol (D-3) 1,000 UNIT (25MCG) TABLET PO SCH (07:56)
[2021-10-19] MEDS: carvediloL 6.25 MG TABLET PO SCH ×2 (07:56→17:07)
[2021-10-19] MEDS: Loratadine 10 MG TABLET PO SCH (07:57)
[2021-10-19] MEDS: amLODIPine 5 MG TABLET PO SCH (07:57)
[2021-10-19] MEDS: lisinopriL 10 MG TABLET PO SCH (07:57)
[2021-10-19] MEDS: allopurinoL 100 MG TABLET PO SCH ×2 (07:57→21:09)
[2021-10-19] MEDS: dexAMETHasone 4 MG TABLET PO SCH (07:57)
[2021-10-19] MEDS: Vancomycin Oral Soln 125 MG/2.5 ML UDC PO SCH (08:00)
[2021-10-19] MEDS: DICLOFENAC SODIUM 2 GM TP SCH ×4 (08:00→21:14)
[2021-10-19] MEDS: Insulin LISPRO 300 UNITS/3 ML VIAL SUBQ SCH ×4 (08:00→21:11)
[2021-10-19] MEDS: Melatonin 3 MG TABLET PO PRN (21:09)
[2021-10-19] MEDS: OLANZapine 5 MG TAB.RAPDIS PO SCH (21:10)
[2021-10-20] MEDS: levETIRAcetam 250 MG TABLET PO SCH ×2 (05:15→17:18)
[2021-10-20] MEDS: dexAMETHasone 4 MG TABLET PO SCH ×2 (08:23→20:09)
[2021-10-20] MEDS: Cholecalciferol (D-3) 1,000 UNIT (25MCG) TABLET PO SCH (08:23)
[2021-10-20] MEDS: allopurinoL 100 MG TABLET PO SCH ×2 (08:23→19:46)
[2021-10-20] MEDS: Insulin LISPRO 300 UNITS/3 ML VIAL SUBQ SCH ×4 (08:23→20:09)
[2021-10-20] MEDS: Loratadine 10 MG TABLET PO SCH (08:23)
[2021-10-20] MEDS: carvediloL 6.25 MG TABLET PO SCH ×2 (08:23→17:18)
[2021-10-20] MEDS: amLODIPine 5 MG TABLET PO SCH (08:23)
[2021-10-20] MEDS: lisinopriL 10 MG TABLET PO SCH (08:24)
[2021-10-20] MEDS: DICLOFENAC SODIUM 2 GM TP SCH ×4 (08:24→19:48)
[2021-10-20] MEDS: Acetaminophen 325 MG TABLET PO PRN (19:44)
[2021-10-20] MEDS: OLANZapine 5 MG TAB.RAPDIS PO SCH (19:46)
[2021-10-21] MEDS: levETIRAcetam 250 MG TABLET PO SCH ×2 (05:53→17:31)
[2021-10-21 06:05] LABS: Basophils % 0.1 %; Eosinophils % 0.1 %; Hematocrit 23.7 % (35.3-44.9); Hemoglobin 8.1 g/dL (11.5-15.4); Immature Granulocytes % 0.4 % (0-4); Lymphocytes # 0.6 K/mcL (0.6-4.6); Lymphocytes % 5.3 %; Mean Corpuscular HGB Conc 34.2 g/dL (31.6-35.5); Mean Corpuscular Hemoglobin 28.3 pg (28.0-33.3); Mean Corpuscular Volume 82.9 fL (83.0-100.0); Mean Platelet Volume 10.8 fL (9.4-12.4); Monocytes # 0.2 K/mcL (0.0-1.3); Monocytes % 1.4 %; Neutrophils # 9.7 K/mcL (1.6-8.9); Platelet Count 102 K/mcL (140-400); Red Blood Count 2.86 M/mcL (3.82-4.97); Red Cell Distribution Width 18.8 % (11.5-14.5); Segmented Neutrophils % 92.7 %; White Blood Count 10.4 K/mcL (4.3-11.1)
[2021-10-21 06:24] LABS: Alanine Aminotransferase 25 Units/L (7-52); Albumin 3.1 g/dL (3.5-5.7); Albumin/Globulin Ratio 1.9 (1.1-2.2); Alkaline Phosphatase 87 Units/L (34-104); Aspartate Amino Transferase 12 Units/L (13-39); BUN/Creatinine Ratio 23 (6-26); Bilirubin,Total 1.2 mg/dL (0.3-1.0); Blood Urea Nitrogen 23 mg/dL (8-23); Calcium 8.5 mg/dL (8.6-10.3); Carbon Dioxide 25 mEq/L (23-29); Chloride 102 mEq/L (98-107); Globulin 1.6 g/dL (2.4-3.5); Glucose 287 mg/dL (70-105); Osmolality,Calculated 298 (280-300); Potassium 4.4 mEq/L (3.5-5.1); Sodium 137 mEq/L (136-145); Total Protein 4.7 g/dL (6.4-8.9); eGFR For African Americans > 60 (> 60); eGFR For Non-African Americans 53 (> 60)
[2021-10-21] MEDS: carvediloL 6.25 MG TABLET PO SCH ×2 (08:27→17:31)
[2021-10-21] MEDS: lisinopriL 10 MG TABLET PO SCH (08:27)
[2021-10-21] MEDS: Loratadine 10 MG TABLET PO SCH (08:27)
[2021-10-21] MEDS: amLODIPine 5 MG TABLET PO SCH (08:28)
[2021-10-21] MEDS: DICLOFENAC SODIUM 2 GM TP SCH ×4 (08:28→21:01)
[2021-10-21] MEDS: Cholecalciferol (D-3) 1,000 UNIT (25MCG) TABLET PO SCH (08:28)
[2021-10-21] MEDS: allopurinoL 100 MG TABLET PO SCH ×2 (08:28→21:00)
[2021-10-21] MEDS: Insulin LISPRO 300 UNITS/3 ML VIAL SUBQ SCH ×4 (08:28→20:58)
[2021-10-21] MEDS: Vancomycin Oral Soln 125 MG/2.5 ML UDC PO SCH (08:28)
[2021-10-21] MEDS: dexAMETHasone 4 MG TABLET PO SCH ×2 (08:28→21:00)
[2021-10-21] MEDS: OLANZapine 5 MG TAB.RAPDIS PO SCH (21:00)
[2021-10-21] MEDS: Melatonin 3 MG TABLET PO PRN (21:00)
[2021-10-22] MEDS: levETIRAcetam 250 MG TABLET PO SCH ×2 (05:31→17:24)
[2021-10-22] MEDS: Loratadine 10 MG TABLET PO SCH (09:25)
[2021-10-22] MEDS: allopurinoL 100 MG TABLET PO SCH ×2 (09:25→21:07)
[2021-10-22] MEDS: amLODIPine 5 MG TABLET PO SCH (09:25)
[2021-10-22] MEDS: Cholecalciferol (D-3) 1,000 UNIT (25MCG) TABLET PO SCH (09:25)
[2021-10-22] MEDS: carvediloL 6.25 MG TABLET PO SCH ×2 (09:25→17:24)
[2021-10-22] MEDS: lisinopriL 10 MG TABLET PO SCH (09:26)
[2021-10-22] MEDS: DICLOFENAC SODIUM 2 GM TP SCH ×4 (09:26→21:08)
[2021-10-22] MEDS: Insulin LISPRO 300 UNITS/3 ML VIAL SUBQ SCH ×4 (09:26→21:05)
[2021-10-22] MEDS: dexAMETHasone 4 MG TABLET PO SCH ×2 (09:26→21:07)
[2021-10-22] MEDS: Melatonin 3 MG TABLET PO PRN (21:07)
[2021-10-22] MEDS: OLANZapine 5 MG TAB.RAPDIS PO SCH (21:07)
[2021-10-23] MEDS: levETIRAcetam 250 MG TABLET PO SCH ×2 (05:22→21:41)
[2021-10-23] MEDS: Acetaminophen 325 MG TABLET PO PRN (05:23)
[2021-10-23] MEDS: DICLOFENAC SODIUM 2 GM TP SCH ×4 (07:59→21:42)
[2021-10-23] MEDS: Insulin LISPRO 300 UNITS/3 ML VIAL SUBQ SCH ×4 (08:17→21:45)
[2021-10-23] MEDS: allopurinoL 100 MG TABLET PO SCH ×2 (08:19→21:41)
[2021-10-23] MEDS: amLODIPine 5 MG TABLET PO SCH (08:19)
[2021-10-23] MEDS: dexAMETHasone 4 MG TABLET PO SCH ×3 (08:19→21:42)
[2021-10-23] MEDS: lisinopriL 10 MG TABLET PO SCH (08:19)
[2021-10-23] MEDS: Cholecalciferol (D-3) 1,000 UNIT (25MCG) TABLET PO SCH (08:19)
[2021-10-23] MEDS: Loratadine 10 MG TABLET PO SCH (08:20)
[2021-10-23] MEDS: Vancomycin Oral Soln 125 MG/2.5 ML UDC PO SCH (08:20)
[2021-10-23] MEDS: carvediloL 6.25 MG TABLET PO SCH ×2 (08:20→17:11)
[2021-10-23] MEDS: BYDUREON 2 MG SQ SCH (11:59)
[2021-10-23] MEDS ORDERED: *HR* LORazepam 0.5 MG TABLET PO PRN (15:39)
[2021-10-23] MEDS: Melatonin 3 MG TABLET PO PRN (21:41)
[2021-10-23] MEDS: OLANZapine 5 MG TAB.RAPDIS PO SCH (21:42)
[2021-10-24] MEDS: allopurinoL 100 MG TABLET PO SCH ×2 (08:01→20:54)
[2021-10-24] MEDS: DICLOFENAC SODIUM 2 GM TP SCH ×4 (08:02→21:01)
[2021-10-24] MEDS: lisinopriL 10 MG TABLET PO SCH (08:02)
[2021-10-24] MEDS: dexAMETHasone 4 MG TABLET PO SCH ×4 (08:03→20:51)
[2021-10-24] MEDS: Loratadine 10 MG TABLET PO SCH (08:03)
[2021-10-24] MEDS: amLODIPine 5 MG TABLET PO SCH (08:03)
[2021-10-24] MEDS: Cholecalciferol (D-3) 1,000 UNIT (25MCG) TABLET PO SCH (08:03)
[2021-10-24] MEDS: carvediloL 6.25 MG TABLET PO SCH ×2 (08:04→16:36)
[2021-10-24] MEDS: levETIRAcetam 250 MG TABLET PO SCH ×3 (08:04→20:52)
[2021-10-24] MEDS: Insulin LISPRO 300 UNITS/3 ML VIAL SUBQ SCH ×4 (08:06→20:55)
[2021-10-24] MEDS: OLANZapine 5 MG TAB.RAPDIS PO SCH (20:50)
[2021-10-25] MEDS: Cholecalciferol (D-3) 1,000 UNIT (25MCG) TABLET PO SCH (07:29)
[2021-10-25] MEDS: Loratadine 10 MG TABLET PO SCH (07:29)
[2021-10-25] MEDS: allopurinoL 100 MG TABLET PO SCH ×2 (07:30→20:27)
[2021-10-25] MEDS: dexAMETHasone 4 MG TABLET PO SCH ×4 (07:30→20:29)
[2021-10-25] MEDS: amLODIPine 5 MG TABLET PO SCH (07:31)
[2021-10-25] MEDS: lisinopriL 10 MG TABLET PO SCH (07:31)
[2021-10-25] MEDS: levETIRAcetam 250 MG TABLET PO SCH ×3 (07:31→20:28)
[2021-10-25] MEDS: carvediloL 6.25 MG TABLET PO SCH ×2 (07:31→16:41)
[2021-10-25] MEDS: DICLOFENAC SODIUM 2 GM TP SCH ×3 (07:32→20:35)
[2021-10-25] MEDS: Insulin LISPRO 300 UNITS/3 ML VIAL SUBQ SCH ×5 (07:42→20:29)
[2021-10-25] MEDS: Vancomycin Oral Soln 125 MG/2.5 ML UDC PO SCH (08:57)
[2021-10-25] MEDS: OLANZapine 5 MG TAB.RAPDIS PO SCH (20:27)
[2021-10-26] MEDS: Cholecalciferol (D-3) 1,000 UNIT (25MCG) TABLET PO SCH (08:13)
[2021-10-26] MEDS: dexAMETHasone 4 MG TABLET PO SCH ×4 (08:14→21:25)
[2021-10-26] MEDS: Loratadine 10 MG TABLET PO SCH (08:14)
[2021-10-26] MEDS: allopurinoL 100 MG TABLET PO SCH ×2 (08:14→21:25)
[2021-10-26] MEDS: lisinopriL 10 MG TABLET PO SCH (08:14)
[2021-10-26] MEDS: amLODIPine 5 MG TABLET PO SCH (08:15)
[2021-10-26] MEDS: levETIRAcetam 250 MG TABLET PO SCH ×3 (08:15→21:25)
[2021-10-26] MEDS: Insulin LISPRO 300 UNITS/3 ML VIAL SUBQ SCH ×4 (08:16→21:26)
[2021-10-26] MEDS: carvediloL 6.25 MG TABLET PO SCH ×2 (08:16→16:59)
[2021-10-26] MEDS: DICLOFENAC SODIUM 2 GM TP SCH ×3 (08:16→21:40)
[2021-10-26] MEDS: OLANZapine 5 MG TAB.RAPDIS PO SCH (21:25)
[2021-10-27 06:52] LABS: Albumin/Globulin Ratio 1.7 (1.1-2.2); Bilirubin,Total 1.6 mg/dL (0.3-1.0); Calcium 8.2 mg/dL (8.6-10.3); Globulin 1.8 g/dL (2.4-3.5); Potassium 4.6 mEq/L (3.5-5.1); Total Protein 4.8 g/dL (6.4-8.9)
[2021-10-27 07:40] LABS: Hematocrit 25.6 % (35.3-44.9); Hemoglobin 8.9 g/dL (11.5-15.4); Mean Corpuscular HGB Conc 34.8 g/dL (31.6-35.5); Mean Corpuscular Hemoglobin 28.5 pg (28.0-33.3); Mean Corpuscular Volume 82.1 fL (83.0-100.0); Mean Platelet Volume 11.5 fL (9.4-12.4); Red Blood Count 3.12 M/mcL (3.82-4.97); Red Cell Distribution Width 17.7 % (11.5-14.5); White Blood Count 7.2 K/mcL (4.3-11.1)
[2021-10-27 07:41] LABS: Platelet Count 95 K/mcL (140-400)
[2021-10-27] MEDS: carvediloL 6.25 MG TABLET PO SCH ×2 (09:04→17:34)
[2021-10-27] MEDS: amLODIPine 5 MG TABLET PO SCH (09:04)
[2021-10-27] MEDS: levETIRAcetam 250 MG TABLET PO SCH ×3 (09:04→20:32)
[2021-10-27] MEDS: Cholecalciferol (D-3) 1,000 UNIT (25MCG) TABLET PO SCH (09:04)
[2021-10-27] MEDS: lisinopriL 10 MG TABLET PO SCH (09:04)
[2021-10-27] MEDS: dexAMETHasone 4 MG TABLET PO SCH ×4 (09:04→20:32)
[2021-10-27] MEDS: Loratadine 10 MG TABLET PO SCH (09:04)
[2021-10-27] MEDS: allopurinoL 100 MG TABLET PO SCH ×2 (09:04→20:32)
[2021-10-27] MEDS: DICLOFENAC SODIUM 2 GM TP SCH ×4 (09:05→20:27)
[2021-10-27] MEDS: Vancomycin Oral Soln 125 MG/2.5 ML UDC PO SCH (09:05)
[2021-10-27] MEDS: Insulin LISPRO 300 UNITS/3 ML VIAL SUBQ SCH ×4 (09:05→20:31)
[2021-10-27] MEDS: OLANZapine 5 MG TAB.RAPDIS PO SCH (20:31)
[2021-10-28] MEDS: dexAMETHasone 4 MG TABLET PO SCH ×4 (08:55→20:02)
[2021-10-28] MEDS: allopurinoL 100 MG TABLET PO SCH ×2 (08:55→20:02)
[2021-10-28] MEDS: Cholecalciferol (D-3) 1,000 UNIT (25MCG) TABLET PO SCH (08:55)
[2021-10-28] MEDS: Loratadine 10 MG TABLET PO SCH (08:55)
[2021-10-28] MEDS: amLODIPine 5 MG TABLET PO SCH (08:55)
[2021-10-28] MEDS: levETIRAcetam 250 MG TABLET PO SCH ×3 (08:55→20:01)
[2021-10-28] MEDS: carvediloL 6.25 MG TABLET PO SCH ×2 (08:56→18:26)
[2021-10-28] MEDS: lisinopriL 10 MG TABLET PO SCH (08:56)
[2021-10-28] MEDS: DICLOFENAC SODIUM 2 GM TP SCH ×4 (09:01→20:14)
[2021-10-28] MEDS: Insulin LISPRO 300 UNITS/3 ML VIAL SUBQ SCH ×4 (09:02→19:57)
[2021-10-28] MEDS: OLANZapine 5 MG TAB.RAPDIS PO SCH (20:04)
[2021-10-29] MEDS: lisinopriL 10 MG TABLET PO SCH (08:43)
[2021-10-29] MEDS: Cholecalciferol (D-3) 1,000 UNIT (25MCG) TABLET PO SCH (08:43)
[2021-10-29] MEDS: carvediloL 6.25 MG TABLET PO SCH ×2 (08:44→17:07)
[2021-10-29] MEDS: amLODIPine 5 MG TABLET PO SCH (08:44)
[2021-10-29] MEDS: dexAMETHasone 4 MG TABLET PO SCH ×4 (08:45→20:08)
[2021-10-29] MEDS: Loratadine 10 MG TABLET PO SCH (08:45)
[2021-10-29] MEDS: Insulin LISPRO 300 UNITS/3 ML VIAL SUBQ SCH ×4 (08:45→20:13)
[2021-10-29] MEDS: levETIRAcetam 250 MG TABLET PO SCH ×3 (08:45→20:10)
[2021-10-29] MEDS: allopurinoL 100 MG TABLET PO SCH ×2 (08:45→20:08)
[2021-10-29] MEDS: DICLOFENAC SODIUM 2 GM TP SCH ×4 (08:46→20:14)
[2021-10-29] MEDS: Vancomycin Oral Soln 125 MG/2.5 ML UDC PO SCH (09:00)
[2021-10-29] MEDS ORDERED: BYDUREON 2 MG SQ SCH (17:45)
[2021-10-29] MEDS: OLANZapine 5 MG TAB.RAPDIS PO SCH (20:11)
[2021-10-30 04:42] LABS: Hematocrit 24.8 % (35.3-44.9); Hemoglobin 8.6 g/dL (11.5-15.4); Immature Granulocytes % 1.2 % (0-4); Lymphocytes # 0.5 K/mcL (0.6-4.6); Lymphocytes % 8.6 %; Mean Corpuscular HGB Conc 34.7 g/dL (31.6-35.5); Mean Corpuscular Hemoglobin 28.7 pg (28.0-33.3); Mean Corpuscular Volume 82.7 fL (83.0-100.0); Mean Platelet Volume 11.4 fL (9.4-12.4); Monocytes # 0.2 K/mcL (0.0-1.3); Monocytes % 2.7 %; Neutrophils # 5.1 K/mcL (1.6-8.9); Nucleated Red Blood Cells 0.3 /100 WBC (0); Red Cell Distribution Width 17.9 % (11.5-14.5); Segmented Neutrophils % 87.5 %; White Blood Count 5.8 K/mcL (4.3-11.1)
[2021-10-30 04:49] LABS: Platelet Count 81 K/mcL (140-400)
[2021-10-30 04:51] LABS: Platelet Estimate Decreased (Normal)
[2021-10-30 04:57] LABS: Calcium 8.4 mg/dL (8.6-10.3); Potassium 4.5 mEq/L (3.5-5.1)
[2021-10-30] MEDS: dexAMETHasone 4 MG TABLET PO SCH ×3 (07:41→17:03)
[2021-10-30] MEDS: Acetaminophen 325 MG TABLET PO PRN (07:41)
[2021-10-30] MEDS: amLODIPine 5 MG TABLET PO SCH (07:41)
[2021-10-30] MEDS: Cholecalciferol (D-3) 1,000 UNIT (25MCG) TABLET PO SCH (07:41)
[2021-10-30] MEDS: carvediloL 6.25 MG TABLET PO SCH ×2 (07:42→17:02)
[2021-10-30] MEDS: Loratadine 10 MG TABLET PO SCH (07:42)
[2021-10-30] MEDS: allopurinoL 100 MG TABLET PO SCH (07:42)
[2021-10-30] MEDS: lisinopriL 10 MG TABLET PO SCH (07:42)
[2021-10-30] MEDS: levETIRAcetam 250 MG TABLET PO SCH ×2 (07:42→13:39)
[2021-10-30] MEDS: DICLOFENAC SODIUM 2 GM TP SCH ×3 (07:42→17:26)
[2021-10-30] MEDS: Insulin LISPRO 300 UNITS/3 ML VIAL SUBQ SCH ×4 (07:43→20:10)
[2021-10-31] MEDS: levETIRAcetam 250 MG TABLET PO SCH ×3 (03:01→16:56)
[2021-10-31] MEDS: dexAMETHasone 4 MG TABLET PO SCH ×5 (03:01→20:40)
[2021-10-31] MEDS: allopurinoL 100 MG TABLET PO SCH ×3 (03:02→20:40)
[2021-10-31] MEDS: OLANZapine 5 MG TAB.RAPDIS PO SCH ×2 (03:02→20:30)
[2021-10-31] MEDS: DICLOFENAC SODIUM 2 GM TP SCH ×5 (03:02→20:40)
[2021-10-31] MEDS: carvediloL 6.25 MG TABLET PO SCH ×2 (08:37→16:56)
[2021-10-31] MEDS: amLODIPine 5 MG TABLET PO SCH (08:37)
[2021-10-31] MEDS: lisinopriL 10 MG TABLET PO SCH (08:38)
[2021-10-31] MEDS: Insulin LISPRO 300 UNITS/3 ML VIAL SUBQ SCH ×4 (08:55→20:31)
[2021-10-31] MEDS: Cholecalciferol (D-3) 1,000 UNIT (25MCG) TABLET PO SCH (08:56)
[2021-10-31] MEDS: Loratadine 10 MG TABLET PO SCH (08:56)
[2021-10-31] MEDS ORDERED: Morphine Sulfate Oral CONC 10 MG/0.5 ML ORAL.SYG SL PRN (13:37)
[2021-10-31] MEDS ORDERED: *HR* LORazepam Oral Conc 2 MG/ML PO PRN (18:00)
[2021-10-31] MEDS: levETIRAcetam 500 MG/5 ML UDC PO SCH (20:27)
[2021-11-01] MEDS: DICLOFENAC SODIUM 2 GM TP SCH ×4 (07:27→22:41)
[2021-11-01] MEDS: lisinopriL 10 MG TABLET PO SCH (07:27)
[2021-11-01] MEDS: carvediloL 6.25 MG TABLET PO SCH ×2 (07:27→16:30)
[2021-11-01] MEDS: dexAMETHasone 4 MG TABLET PO SCH ×4 (07:27→22:41)
[2021-11-01] MEDS: allopurinoL 100 MG TABLET PO SCH ×2 (07:27→22:41)
[2021-11-01] MEDS: levETIRAcetam 500 MG/5 ML UDC PO SCH ×3 (07:27→22:41)
[2021-11-01] MEDS: Insulin LISPRO 300 UNITS/3 ML VIAL SUBQ SCH ×4 (07:44→22:31)
[2021-11-01] MEDS: OLANZapine 5 MG TAB.RAPDIS PO SCH (22:41)
[2021-11-02] MEDS: lisinopriL 10 MG TABLET PO SCH (09:38)
[2021-11-02] MEDS: dexAMETHasone 4 MG TABLET PO SCH ×4 (09:38→19:51)
[2021-11-02] MEDS: DICLOFENAC SODIUM 2 GM TP SCH ×4 (09:38→19:52)
[2021-11-02] MEDS: allopurinoL 100 MG TABLET PO SCH ×2 (09:38→19:51)
[2021-11-02] MEDS: Insulin LISPRO 300 UNITS/3 ML VIAL SUBQ SCH ×4 (09:38→19:47)
[2021-11-02] MEDS: levETIRAcetam 500 MG/5 ML UDC PO SCH ×3 (09:38→19:51)
[2021-11-02] MEDS: carvediloL 6.25 MG TABLET PO SCH ×2 (09:38→16:29)
[2021-11-02] MEDS: OLANZapine 5 MG TAB.RAPDIS PO SCH (19:51)
[2021-11-03 07:33] VITALS: RESP 18
[2021-11-03] MEDS: allopurinoL 100 MG TABLET PO SCH (08:58)
[2021-11-03] MEDS: levETIRAcetam 500 MG/5 ML UDC PO SCH ×2 (08:58→16:49)
[2021-11-03] MEDS: dexAMETHasone 4 MG TABLET PO SCH ×3 (08:58→17:56)
[2021-11-03] MEDS: lisinopriL 10 MG TABLET PO SCH (08:58)
[2021-11-03] MEDS: carvediloL 6.25 MG TABLET PO SCH ×2 (08:58→17:56)
[2021-11-03] MEDS: Insulin LISPRO 300 UNITS/3 ML VIAL SUBQ SCH ×3 (08:59→17:56)
[2021-11-03] MEDS: DICLOFENAC SODIUM 2 GM TP SCH ×3 (09:19→17:56)
[2021-11-04 07:17] VITALS: BP 143/72; PULSE 96; TEMP 98; O2SAT 91
== END 2021-11-03 18:05 | disposition hospice, inpatient (51) | DRG 843 ==
LOC: INPGRE 10-06 20:32
PROVIDERS: ADMIT Family Medicine; ATTEND Family Medicine

== ENCOUNTER 2021-11-03 17:56 | Inpatient (IN) ==
[2021-11-03] MEDS ORDERED: Acetaminophen 650 MG RECTAL SUPP RC PRN (18:39)
[2021-11-03] MEDS ORDERED: Haloperidol Oral Conc 10 MG/5 ML UDC PO PRN (18:39)
[2021-11-03] MEDS ORDERED: Ondansetron ODT 4 MG TAB.RAPDIS SL PRN (18:39)
[2021-11-03] MEDS ORDERED: Sennosides/Docusate Sodium TABLET PO PRN (18:39)
[2021-11-03] MEDS ORDERED: Morphine Sulfate Oral CONC 10 MG/0.5 ML ORAL.SYG PO PRN (18:39)
[2021-11-03] MEDS ORDERED: Bisacodyl 10 MG RECTAL SUPPOSITORY RC PRN (18:39)
[2021-11-03] MEDS ORDERED: *HR* LORazepam Oral Conc 2 MG/ML PO PRN (18:39)
[2021-11-03] MEDS ORDERED: Atropine Sulfate 1% 40 DROP/2 ML BOTTLE SL PRN (18:39)
[2021-11-03] MEDS ORDERED: Lactulose Oral Soln 20 GM/30 ML UDC PO PRN (18:39)
[2021-11-03] MEDS ORDERED: Ipratropium/Albuterol Neb 3 ML IH PRN (18:39)
[2021-11-03] MEDS ORDERED: Scopolamine Patch 1.5 MG PATCH.TD72 TD SCH (18:45)
[2021-11-03] MEDS ORDERED: Melatonin 3 MG TABLET PO PRN (18:46)
[2021-11-03 19:12] VITALS: O2SAT 91
[2021-11-03] MEDS: levETIRAcetam 500 MG/5 ML UDC PO SCH (22:07)
[2021-11-03] MEDS: OLANZapine 5 MG TAB.RAPDIS PO SCH (22:07)
[2021-11-03] MEDS: dexAMETHasone 4 MG TABLET PO SCH (22:07)
[2021-11-04] MEDS: levETIRAcetam 500 MG/5 ML UDC PO SCH ×3 (08:50→20:25)
[2021-11-04] MEDS: carvediloL 6.25 MG TABLET PO SCH ×2 (08:51→16:23)
[2021-11-04] MEDS: dexAMETHasone 4 MG TABLET PO SCH ×3 (08:51→20:25)
[2021-11-04 19:04] VITALS: BP 118/70; PULSE 74; RESP 19; TEMP 98.1
[2021-11-04] MEDS: OLANZapine 5 MG TAB.RAPDIS PO SCH (20:25)
[2021-11-05] MEDS: dexAMETHasone 4 MG TABLET PO SCH (08:13)
[2021-11-05] MEDS: levETIRAcetam 500 MG/5 ML UDC PO SCH (08:13)
[2021-11-05] MEDS: carvediloL 6.25 MG TABLET PO SCH (08:13)
== END 2021-11-05 12:15 | disposition expired | DRG 951 ==
LOC: INPGRE 18:03
PROVIDERS: ADMIT Family Medicine; ATTEND Family Medicine